=== PATIENT | female | born 1995 | race Caucasian/White ===

== ENCOUNTER → 2017-05-03 12:15 | Outpatient (CLI) | payer BC | END | disposition home or self-care (01) | LOC: D.LDO 12:15 | DX: O26.893 Other specified pregnancy related conditions, third trimester (principal); Z3A.37 37 weeks gestation of pregnancy ==

== ENCOUNTER 2017-05-05 20:50 | Inpatient (IN) | payer BC, MEDICAID ==
[~2017-05-05] VITALS: Ht 165.1 cm; Wt 66.8 kg
[2017-05-05 21:48] LABS: HEMATOCRIT 36.5 % (36.0-48.0); HEMOGLOBIN 12.4 g/dL (12-16); MCV 88.4 fL (80.0-100.0); MEAN PLATELET VOLUME 10.5 fL (7.4-10.4); RBC 4.13 10x6/uL (4.00-5.40); RDW 13.9 % (11.5-14.5); WBC 12.7 10x3/uL (4.8-10.8)
--- NOTE | 2017-05-05 22:25 | NUR ---
PT AMB, GAIT STEADY, TO ROOM 1273, PT TO BED, PITOCIN TO PUMP PER MARZENA GO RN, STARTED AT 200 ML/HR, PT INST ON AND VERBALIZES UNDERSTANDING OF [place] HAT, PT INST TO USE CALL LIGHT WHEN NEEDING TO GET UP TO VOID, INFORMED PT THAT I WILL GO OVER BETADINE AND WATER WITH HER WHEN SHE GETS UP TO VOID, PT VERBALIZES UNDERSTANDING, DENIES NEEDS AT THIS TIME
--- NOTE | 2017-05-05 22:30 | NUR ---
DR LAURENT NOTIFIED, INQUIRED ABOUT PAIN MED ORDERS, RECEIVED ORDERS FOR MOTRIN AND TYLENOL
--- NOTE | 2017-05-05 22:57 | NUR ---
ADMITTING HISTORY, ASSESSMENT, AND MED REC PER THIS RN AND MARZENA GO RN
[2017-05-05 23:10] VITALS: BP 123/89; Ht 165.1 cm; Wt 66.8 kg
--- NOTE | 2017-05-06 00:05 | NUR ---
UPON ENTERING ROOM, PT IS UP IN ROOM, PT INST TO USE THE BR, PT STATES "I REALLY DON'T FEEL LIKE I NEED TO GO", PT INST TO GO INTO BR AND TRY, PT TO COMMODE, PT VOIDED 500 MLS OF BLOOD TINGED URINE BY SELF WITH NO DIFFICULTY, PT STATES "I GUESS I DID NEED TO GO", ASSISTED PT WITH BECKIE CARE, BECKIE PAD AND PANTIES, PT REQUESTS TO GO SEE BABY, PT OUT OF ROOM, GAIT STEADY, MOM AT SIDE, PT DENIES NEEDS OR PAIN AT THIS TIME, UA OBTAINED
--- NOTE | 2017-05-06 00:20 | NUR ---
PT BACK TO ROOM
--- NOTE | 2017-05-06 01:12 | NUR ---
PT FELTMAKER LIGHT, FOB BROUGHT IN MEDS FOR MED REC, MED REC GONE OVER VERBALLY WITH PT, PT ALSO C/O BECKIE PAIN, ADM MOTRIN PO PER MD ORDERS, SEE EMAR, WITH FRESH H20, PT DENIES FURTHER NEEDS, FOB AND FRIENDS AT BEDSIDE
[2017-05-06] MEDS ORDERED: CALCIUM 500 + D1 TAB PO (01:24)
[2017-05-06] MEDS ORDERED: FERROUS SULFAT325 MG PO (01:25)
[2017-05-06] MEDS ORDERED: BUSPAR10 MG PO (01:29)
[2017-05-06] MEDS ORDERED: PRENATAL COMPLE1 TAB PO (01:29)
[2017-05-06] MEDS ORDERED: PROTONIX40 MG PO (01:29)
[2017-05-06] MEDS ORDERED: BENADRYL25 MG PO (01:30)
[2017-05-06] MEDS ORDERED: ACETAMINOPHEN325 MG PO (01:31)
[2017-05-06] MEDS ORDERED: VYVANSE50 MG PO (01:34)
--- NOTE | 2017-05-06 02:03 | NUR ---
IV BEEPING, PITOCIN FINISHED INFUSING, IV CONVERTED TO SALINE LOCK, FLUSHED WITH 10 MLS OF NS WITH NO DIFFICULTY, PT RATES BECKIE PAIN 3/10, DENIES NEEDS AT THIS TIME, FRIEND AT BEDSIDE
[2017-05-06 02:42] LABS: UDS - AMPHET POSITIVE QUAL (NEGATIVE); UDS - BARB NEGATIVE QUAL (NEGATIVE); UDS - BENZO NEGATIVE QUAL (NEGATIVE); UDS - COCAINE NEGATIVE QUAL (NEGATIVE); UDS - METH NEGATIVE QUAL (NEGATIVE); UDS - OPIATE NEGATIVE QUAL (NEGATIVE); UDS - PCP NEGATIVE QUAL (NEGATIVE); UDS - THC NEGATIVE QUAL (NEGATIVE)
--- NOTE | 2017-05-06 04:20 | NUR ---
PT AWAKE, LOOKING AT PHONE, DENIES NEEDS OR PAIN AT THIS TIME, FOB ASLEEP IN RECLINER
--- NOTE | 2017-05-06 05:00 | NUR ---
PT AWAKE, INFORMED PT THAT OZZY ORTEGA, EVE, WANTED ME TO SEE IF SHE WOULD LIKE TO COME TO THE NSY AND HOLD BABY, PT STATES "OH YES", PT ATTEMPTED TO WAKE FOB, BUT FOB IS SOUND ASLEEP, PT AMB TO NSY, GAIT STEADY, WITH THIS RN, PT DENIES FURTHER NEEDS
--- NOTE | 2017-05-06 05:54 | NUR ---
PT STILL IN NSY AT THIS TIME
--- NOTE | 2017-05-06 06:00 | NUR ---
PT BACK TO ROOM
--- NOTE | 2017-05-06 06:39 | NUR ---
PT AWAKE, TRYING TO FIND SOMETHING ON TV TO WATCH THAT ISN'T "ANNOYING" PER PTS STATEMENT, PT EXCITED THAT SHE GOT TO HOLD BABY, PT DENIES DENIES NEEDS OR PAIN AT THIS TIME, FOB ASLEEP ON PULL OUT COUCH
--- NOTE | 2017-05-06 06:59 | NUR ---
SHIFT REPORT TO DAY SHIFT
--- NOTE | 2017-05-06 07:50 | NUR ---
ASSUMED CARE OF THIS PATIENT. SLEEPING ON RIGHT SIDE. Afua LISA RN FROM NURSERY REQUEST PATIENT TO COME TO NURSERY TO HOLD INFANT IN THE UNIT. PT AROUSED FROM SLEEP AND GIVEN THIS INFORMATION. AMBULATED WITH PATIENT TO NURSERY. FOB SLEEPING ON COUCH.
[2017-05-06 09:00] VITALS: BP 117/83
--- NOTE | 2017-05-06 09:15 | NUR ---
TALKED TO DR LAURENT. TOLD HER THAT PT REQUESTED SOMETHING STRONGER FOR PAIN SINCE THE MOTRIN DID NOT SEEM TO HELP HER. SHE ORDERED PERCOCET 5/325 PO Q 4 H PRN PAIN.
--- NOTE | 2017-05-06 09:16 | NUR ---
RECEIVED REPORT FROM EVE DAWSON. PT IS LYING IN BED. FOB AT BEDSIDE. PT STATES THAT SHE TOOK A MOTRIN EARLIER AND THIS DID NOT HELP HER PAIN. SHE WOULD LIKE SOMETHING ELSE FOR HER PAIN. GEN- AWAKE AND ALERT. LUNGS- CLEAR. HEART- RRR. ABD- SOFT, WITH TENDERNESS. FUNDUS FIRM AT U 2. SMALL LOCIA RUBRA. EXT- NO EDEMA NOTED. SALINE LOCK LEFT FOREARM. PATENT. BED IS LOW. SIDE RAILS UP X 2 AND CALL LIGHT IN REACH.
--- NOTE | 2017-05-06 09:30 | NUR ---
PT GIVEN PAIN MED. SHE STATES HER PAIN IS AN 8 AT THIS TIME.
--- NOTE | 2017-05-06 10:39 | NUR ---
PT IS BABY. EVE RODRIGUEZ ASSISTING PT.
--- NOTE | 2017-05-06 11:30 | NUR ---
PT IS PUMPING HER BREAST. SHE WAS ABLE TO EXPRESS 55 ML'S
--- NOTE | 2017-05-06 12:14 | NUR ---
PT IS FEEDING BABY. BABY IS DOING WELL.
--- NOTE | 2017-05-06 13:50 | NUR ---
AMBULATING IN ROOM. VISITORS IN ROOM WITH INFANT. REQUESTED EXTRA PILLOW. DENIES NEEDING ANYTHING ELSE. INSTRUCTED TO CALL WHEN SHE HAS A QUIET MOMENT TO LEARN HOW TO USE A SITZ BATH. VERBALIZED UNDERSTANDING.
--- NOTE | 2017-05-06 17:03 | NUR ---
SITTING UP IN BED HOLDING . . REQUESTED PAIN MEDICATION FOR PERINEAL PAIN, BACK PAIN AND CRAMPING. PERCOCET 5 MG GIVEN PO FOR PAIN. DISCUSSED USE OF SITZ BATH, EPIFOAM/TUCKS PADS ALTERNATING WITH DERMOPLAST SPRAY. RECOMMEND SITZ BATH FOLLOWED BY A SHOWER. SHE WILL LET RN KNOW WHEN READY TO DO ABOVE. VISITORS IN ROOM. FOB SLEEPING ON COUCH. SIDE RAILS UP X 2. CALL LIGHT IN REACH.
--- NOTE | 2017-05-06 18:44 | NUR ---
SITZ BATH COMPLETED. CURRENTLY IN SHOWER. COMPLETE LINEN CHANGE. TO CALL WHEN READY FOR ASSISTANCE WITH EPIFOAM/TUCKS PADS. VERBALIZED UNDERSTANDING. VISITORS IN ROOM AND FOB PRESENT. IN CRIB.
--- NOTE | 2017-05-06 19:10 | NUR ---
PT OUT OF ROOM AT THIS TIME. GILLIAN PRADO
--- NOTE | 2017-05-06 19:10 | NUR ---
FINISHED SHOWER. INSTRUCTED ON USE OF TUCKS AND EPIFOAM. INSTRUCTED THIS WILL BE ALTERNATED Q 2 HOURS NEEDED WITH THE DERMOPLAST SPRAY. VERBALIZED UNDERSTANDING.
[2017-05-06 20:09] VITALS: BP 121/87
--- NOTE | 2017-05-06 20:09 | NUR ---
REC'D PT SITTING UP IN BED. RESP EVEN AND UNLABORED. LUNGS CLEAR BILATERALLY. ABDOMEN SOFT, NON DISTENDED. BOWEL SOUNDS PRESENT X4. FUNDUS FIRM U/2. LOCHIA SCANT TO MODERATE ON BECKIE PAD. PT REPORTS VOIDING WITHOUT DIFFICULTY. PT REPORTS PAIN 5/10. DISCUSSED DRUG SCREEN WITH PT. STATES SHE HAS A PRESCRIPTION FOR [facility]ANCE PRESCRIBED BY DR. RAM AND WILL PROVIDE PRESCRIPTION BOTTLE. INFANT PLACED IN HER ARMS. DENIES NEEDS AT THIS TIME. GILLIAN PRADO
--- NOTE | 2017-05-06 20:52 | NUR ---
S/O BROUGHT PRESCRIPTION BOTTLE OF VYVANSE 50MG EVERY MORNING. GILLIAN PRADO
--- NOTE | 2017-05-06 21:47 | NUR ---
PT MEDICATED WITH MOTRIN FOR C/O PAIN 5/10 TO BACK AND PERINEAL AREA. PT HOLDING INFANT AT THIS TIME. GILLIAN PRADO
--- NOTE | 2017-05-06 23:37 | NUR ---
ROOM CHECK, PT RESTING WITH EYES CLOSED. S/O IN BED WITH PT, SLEEPING IN CRIB AT MOM'S BEDSIDE. CAROL NURSE PRESENT IN ROOM. GILLIAN PRADO
--- NOTE | 2017-05-07 02:29 | NUR ---
PT AWAKE FEEDING . FRESH ICE WATER AND SANDWICH TRAY PROVIDED. GILLIAN PRADO
--- NOTE | 2017-05-07 04:00 | NUR ---
PT RESTING WITH EYES CLOSED. RESP EVEN AND UNLABORED. GILLIAN PRADO
--- NOTE | 2017-05-07 05:30 | NUR ---
THIS RN TO ROOM, SUPPORT OFFERED. INFANT LATCHED WITH NIPPLE SHIELD. GILLIAN PRADO
[2017-05-07 06:48] LABS: HEMOGLOBIN 10.6 g/dL (12-16); MCH 30.1 pg (26.0-34.0); MCHC 33.1 g/dL (31.0-37.0); MCV 90.9 fL (80.0-100.0); RBC 3.52 10x6/uL (4.00-5.40); RDW 14.4 % (11.5-14.5); WBC 13.7 10x3/uL (4.8-10.8)
[2017-05-07 07:16] VITALS: BP 115/71
--- NOTE | 2017-05-07 07:29 | NUR ---
ASSUME CARE OF THIS PATIENT. AWAKE LYING ON RIGHT SIDE. INFANT IN CRIB. FOB ASLEEP ON COUCH. SHIFT ASSESSMENT COMPLETED. PT EDUCATION REGARDING VS BOTTLE FEEDING, BASIC ANATOMY OF , IMPORTANCE OF AVOIDING TIGHT FITTING BRAS, PERICARE AND POSSIBLE DISCHARGE TODAY OR ROOMING-IN IF FOR SOME REASON INFANT IS NOT DC'D HOME. VERBALIZED UNDERSTANDING. REGULAR BREAKFAST AT BEDSIDE. SIDE RAILS UP X 2, CALL LIGHT IN REACH. TO CALL IF ANYTHING IS NEEDED OR WHEN READY FOR SITZ BATH. STATES "THAT MADE ME FEEL BETTER YESTERDAY". FRESH PADS AND UNDERWEAR GIVEN TO PT.
--- NOTE | 2017-05-07 09:51 | NUR ---
SITTING UP IN BED . DENIES NEEDING ANYTHING AT THIS TIME.
--- NOTE | 2017-05-07 11:16 | NUR ---
INFANT IN NURSERY. DR LAURENT HERE TO VISIT. PT NOT CURRENTLY IN ROOM, DID NOT NOTIFY RN OR NURSERY RN THAT SHE WOULD BE OUT ROOM.
--- NOTE | 2017-05-07 11:18 | NUR ---
PATIENT RETURNED TO ROOM. DR LAURENT NOTIFIED.
--- NOTE | 2017-05-07 12:53 | NUR ---
SITTING UP IN BED TALKING TO VISITOR. HAS NOT DECIDED REGARDING TDAP. HAS RECEIVED BOTH VERBAL AND WRITTEN INFORMATION REGARDING VACCINATION. SHE WILL LET RN KNOW SAMY. IN NURSERY. NO REQUESTS AT THIS TIME.
--- NOTE | 2017-05-07 13:51 | NUR ---
SITTING UP IN BED WITH INFANT IN ARMS. DECLINES TDAP AT THIS TIME. SAYS SHE IS GOING TO CHECK TO SEE IF SHE HAS HAD IT. INSTRUCTED PT THAT IF SHE CHANGES MIND SHE CAN OBTAIN THROUGH HER PHYSICIAN'S OFFICE OR THE HEALTH DEPARTMENT. VISITOR AND PT CURRENTLY TALKING TO REGISTRATION. CALL LIGHT IN REACH.
[2017-05-07] MEDS ORDERED: IBUPROFEN600 MG PO (13:58)
--- NOTE | 2017-05-07 15:03 | NUR ---
PACKED AND READY TO GO HOME. DC INSTRUCTIONS COMPLETED TO INCLUDE VERBAL AND WRITTEN INFORMATION ON ROUTINE PP CARE, EPIS CARE, S&S INFECTION, PP DEPRESSION, /BREAST CARE, SAFETY, MEDICATION ADMINISTRATION, COMMUNITY RESOURCES AND SMOKING CESSATION. PT DESIRED REFERRAL FOR SMOKING CESSATION. COMPLETED [place] [employer] REFERRAL FORM WHICH WAS FAXED TODAY. COPY OF FORM AND BUSINESS CARD GIVEN TO PATIENT. WILL DC VIA WHEELCHAIR WHEN DC'D FROM NURSERY. PT VERBALIZED UNDERSTANDING OF PT INSTRUCTIONS. SITZ BATH WAS GIVEN TO PATIENT FOR USE AT HOME. ALSO INSTRUCTED PT TO CONTACT PCM REGARDING HER MEDICATION FOR ADD TO LET HIM KNOW THAT SHE HAS DELIVERED AND , AND TO DISCUSS PLAN FOR CONTINUED USE OF MEDICATION. VERBALIZED UNDERSTANDING. SHE WILL CALL TOMORROW.
--- NOTE | 2017-05-07 15:39 | NUR ---
PT PRESENTED TO DESK REQUESTING A COPY OF HER NOTES FOR HERSELF AND INFANT. WAS INSTRUCTED THAT SHE WILL HAVE TO REQUEST A COPY OF HER MEDICAL RECORD FROM [facility]. INSTRUCTED THEY WILL BE OPEN TOMORROW AND SHE CAN COME TO THE HOSPITAL INFORMATION DESK AND THEY WILL DIRECT HER TO MEDICAL RECORDS. VERBALIZED UNDERSTANDING. COPY OF PATIENT HEALTH SUMMARY GIVEN TO PATIENT.
--- NOTE | 2017-05-07 16:30 | NUR ---
REQUESTED PAIN MEDICATION FOR 8/10 PERINEAL PAIN. PERCOCET 5 MG GIVEN PO. ALSO REQUESTED A NEW NIPPLE SHIELD. FOB CONCERNED ABOUT SCORES AND BM ON FLOOR AFTER DELIVERY. DISCUSSED PHYSIOLOGY OF INFANT COMING THROUGH CANAL, FLUIDS IN LUNGS, CAUSES OF TERMINAL MECONIUM, AND HOW SCORES ARE GIVEN BASED ON ASSESSMENT AT 1, 5 AND 10 MINS. INFORMED THAT ACCORDING TO RN IN NURSERY, SCORES ARE CONSISTANT WITH THE ONES HE TOOK PICTURE OF ON PAIR. HE VERBALIZED UNDERSTANDING. PT ALSO ASKED ABOUT CRAMPING AND IF PASSING A CLOT WAS OK. DISCUSSED PP CRAMPING, INVOLUTION, LOCHIA FLOW AND POSSIBLE CLOT WHEN SITTING FOR PROLONG PERIOD AND BLOOD COLLECTS IN VAGINA. VERBALIZED UNDERSTANDING. WAITING ON DC HOME.
--- NOTE | 2017-05-07 17:15 | NUR ---
DC'D VIA WHEELCHAIR TO CAR. FOB WITH INFANT IN CARSEAT. ALL BELONGINGS REMOVED FROM ROOM. HAS DC INSTRUCTIONS AND PRESCRIPTION FOR MOTRIN.
== END 2017-05-07 17:15 | disposition home or self-care (01) | DRG 775 ==
LOC: D.LD 20:50
PROVIDERS: ADMIT Obstetrics & Gynecology
PROC: 10E0XZZ Delivery of Products of Conception, External Approach (ICD-10-PCS; principal; 2017-05-05)
PROC: 0W8NXZZ Division of Female Perineum, External Approach (ICD-10-PCS; 2017-05-05)
DX: O80 Encounter for full-term uncomplicated delivery (principal); Z3A.37 37 weeks gestation of pregnancy; Z37.0 Single live birth